=== PATIENT | male | born 1960 | race African-American/Black ===

== ENCOUNTER 2017-08-20 01:05 | Inpatient (IN) | payer OTHER ==
[2017-08-20] MEDS ORDERED: Sodium Chloride 0.9% 1,000 ML IV ONE (01:30)
[2017-08-20] MEDS ORDERED: Morphine Sulfate 4 mg/mL 1mL Syr IVP STA (01:37)
[2017-08-20] MEDS ORDERED: Morphine Sulfate 4 mg/mL 1mL Syr ONE (01:41)
--- NOTE | 2017-08-20 01:43 | ED Physician Chart ---
ED Chief Complaint/HPI - Patient Information Date Seen:: 08/20/17 Time Seen:: 01:20 Chief Complaint:: abdominal pain History of Present Illness:: Patient developed left-sided abdominal pain about 1 hour ago. Moving around seems to relieve the pain slightly. Patient vomited several times. He's had no diarrhea. Patient has no history of similar pain. Allergies:: Allergies Allergy/AdvReac Type Severity Reaction Status Date / Time No Known Allergies Allergy Verified 08/20/17 01:13 Vitals:: Vital Signs - 8 hr 08/20/17 01:05 Temp 97.6 F HR 82 RR 20 BP 159/83 O2 Sat % 100 Historian:: Patient <AkashMir D. - Last Filed: 08/20/17 06:27> - Patient Information Allergies:: Allergies Allergy/AdvReac Type Severity Reaction Status Date / Time No Known Allergies Allergy Verified 08/20/17 01:13 Vitals:: Vital Signs - 8 hr 08/20/17 08/20/17 06:28 08:15 Temp 98.2 F 97.8 F HR 98 96 RR 20 21 BP 160/97 149/85 O2 Sat % 97 100 <Bryan Prieto - Last Filed: 08/20/17 09:48> ED Review of Systems - Review of Systems General/Constitutional: No fever, No chills, No weight loss, No weakness, No diaphoresis, No edema, No loss of appetite Skin: No skin lesions, No rash, No bruising Head: No headache, No light-headedness Eyes: No loss of vision, No pain, No diplopia ENT: No earache, No nasal drainage, No sore throat, No tinnitus Neck: No neck pain, No swelling, No thyromegaly, No stiffness, No mass noted Cardio Vascular: No chest pain, No palpitations, No PND, No orthopnea, No edema Pulmonary: No SOB, No cough, No sputum, No wheezing GI: Nausea, Vomiting, No diarrhea, No pain, No melena, No hematochezia, No constipation, No hematemesis G/U: No dysuria, No frequency, No hematuria Musculoskeletal: No bone or joint pain, No back pain, No muscle pain Endocrine: No polyuria, No polydipsia Psychiatric: No prior psych history, No depression, No anxiety, No suicidal ideation Hematopoietic: No bruising, No lymphadenopathy Allergic/Immuno: No urticaria, No angioedema Neurological: No syncope, No focal symptoms, No weakness, No paresthesia, No headache, No seizure, No dizziness, No confusion, No vertigo <Mir Bustos - Last Filed: 08/20/17 06:27> ED Past Medical History - Past Medical History Past Medical History: HTN Family History: None Social History: Non Smoker, Alcohol, Other (occasional alcohol consumption) Surgical History: other (arthroscopic surgery for meniscus tear left knee) Psychiatricy History: None Medication: Reviewed <Mir Bustos - Last Filed: 08/20/17 06:27> Family Medical History - Family Member Mother History Unknown: Yes Ethnicity: Non- <Mir Bustos - Last Filed: 08/20/17 06:27> ED Physical Exam - Physical Examination General/Constitutional: Awake, Well-developed, well-nourished, Alert, GCS 15, Non-toxic appearing, Ambulatory Other Gen/Cons comments:: Mild to moderate distress Head: Atraumatic Eyes: Lids, conjuctiva normal, PERRL, EOMI Skin: Nl inspection, No rash, No skin lesions, No ecchymosis, Well hydrated, No lymphadenopathy ENMT: External ears, nose nl, Nasal exam nl, Lips, teeth, gums nl Neck: Nontender, Full ROM w/o pain, No JVD, No nuchal rigidity, No bruit, No mass, No stridor Respiratory: Nl effort/Exclusion, Clear to Auscultation, No Wheeze/Rhonchi/Rales Cardio Vascular: RRR, No murmur, gallop, rubs, NL S1 S2 GI: No organomegaly, No hernia, Normal BS's, Nondistended, No mass/bruits, No McBurney tenderness Other GI comments:: Left mid abdominal and left upper quadrant tenderness : No CVA tenderness Extremities: No tenderness or effusion, Full ROM, normal strength in all extremities, No edema, Normal digits & nails Neuro/Psych: Alert/oriented, DTR's symmetric, Normal sensory exam, Normal motor strength, Judgement/insight normal, Mood normal, Normal gait, No focal deficits Misc: Normal back, No paraspinal tenderness <Mir Bustos - Last Filed: 08/20/17 06:27> ED Labs/Radiology/EKG Results - Lab Results Results: Laboratory Results - last 24 hr 08/20/17 08/20/17 08/20/17 01:30 01:30 02:10 WBC 9.0 RBC 5.16 Hgb 17.0 Hct 48.9 MCV 94.8 MCH 32.9 H MCHC Differential 34.7 RDW 12.7 Plt Count 293 MPV 8.0 Neutrophils % 50.8 Lymphocytes % 35.6 Monocytes % 7.2 Eosinophils % 2.3 Basophils % 4.1 H Sodium 135 L Potassium 2.8 L* Chloride 99 Carbon Dioxide 22.7 Anion Gap 16.1 H BUN 16 Creatinine 1.3 Est GFR ( Amer) > 60.0 Est GFR (Non-Af Amer) > 60.0 BUN/Creatinine Ratio 12.3 Glucose 141 H Calcium 9.8 Magnesium 1.9 Lipase 28 Urine Source [place] Urine Color YELLOW Urine Clarity CLEAR Urine pH 5.5 Ur Specific [place] 1.020 Urine Protein TRACE Urine Glucose (UA) NEGATIVE Urine Ketones NEGATIVE Urine Blood NEGATIVE Urine Nitrate NEGATIVE Urine Bilirubin NEGATIVE Urine Urobilinogen 0.2 Ur Leukocyte Esterase NEGATIVE Urine RBC 0-2 H Urine WBC 0-2 Ur Epithelial Cells OCCASIONAL Urine Bacteria OCCASIONAL - EKG Interpretations Rate & Rhythm: normal sinus rhythm with a rate of 90 [place]: normal axis <Mir Bustos - Last Filed: 08/20/17 06:27> - Lab Results Results: Laboratory Tests 08/20/17 08/20/17 08/20/17 01:30 01:30 02:10 WBC 9.0 RBC 5.16 Hgb 17.0 Hct 48.9 MCV 94.8 MCH 32.9 H MCHC Differential 34.7 RDW 12.7 Plt Count 293 MPV 8.0 Neutrophils % 50.8 Lymphocytes % 35.6 Monocytes % 7.2 Eosinophils % 2.3 Basophils % 4.1 H Sodium 135 L Potassium 2.8 L* Chloride 99 Carbon Dioxide 22.7 Anion Gap 16.1 H BUN 16 Creatinine 1.3 Est GFR ( Amer) > 60.0 Est GFR (Non-Af Amer) > 60.0 BUN/Creatinine Ratio 12.3 Glucose 141 H Calcium 9.8 Magnesium 1.9 Lipase 28 Urine Source [place] Urine Color YELLOW Urine Clarity CLEAR Urine pH 5.5 Ur Specific [place] 1.020 Urine Protein TRACE Urine Glucose (UA) NEGATIVE Urine Ketones NEGATIVE Urine Blood NEGATIVE Urine Nitrate NEGATIVE Urine Bilirubin NEGATIVE Urine Urobilinogen 0.2 Ur Leukocyte Esterase NEGATIVE Urine RBC 0-2 H Urine WBC 0-2 Ur Epithelial Cells OCCASIONAL Urine Bacteria OCCASIONAL - Radiology Results Comments:: + Infitrate <Bryan Prieto - Last Filed: 08/20/17 09:48> ED Assessment - Assessment General Assessment: At 0608 patient's pain is down to 6 out of 8. Pain had been 8 out of 10. Left- sided abdominal tenderness present. Will order a noncontrast CAT scan of abdomen and pelvis. Patient to be endorsed to Dr. Prieto at 0700. <Mir Bustos - Last Filed: 08/20/17 06:27> ED Septic Shock - <6hrs of presentation: Vital Signs: Vital Signs - 8 hr 08/20/17 01:05 Temp 97.6 F HR 82 RR 20 BP 159/83 O2 Sat % 100 <Mir Bustos - Last Filed: 08/20/17 06:27> - . Is Septic Shock (SBP<90, OR Lactate>4 mmol\L) present?: No - <6hrs of presentation: Vital Signs: Vital Signs - 8 hr 08/20/17 08/20/17 06:28 08:15 Temp 98.2 F 97.8 F HR 98 96 RR 20 21 BP 160/97 149/85 O2 Sat % 97 100 <Bryan Prieto - Last Filed: 08/20/17 09:48> ED Reassessment (Disposition) - Reassessment Reassessment Condition:: Improved - Diagnosis Diagnosis:: Abdominal pain; hypokalemia <Mir Bustos - Last Filed: 08/20/17 06:27> - Diagnosis Diagnosis:: Pneumonia; Intractable Pain; Vomiting - Aftercare/Follow up Instructions Aftercare/Follow-Up Instructions:: Counseled pt regarding lab results/diagnosis & need follow up, Counseled pt & family regarding lab results/diagnosis & need follow up - Patient Disposition Discharge/Transfer:: Acute Care w/in this hosp Accepting Physician:: Dr. León Time Called:: 0700 Time Responded:: 07:00 Admitted to:: Med/Surg Spoke to:: Dr. León Admitting Medical Physician:: Dr. León Condition at Disposition:: Stable, Improved <Bryan Prieto - Last Filed: 08/20/17 09:48>
[2017-08-20 01:49] LABS: % BASOPHILS 4.1 % (0.0-2.0); % EOSINOPHILS 2.3 % (0.0-5.0); % LYMPHOCYTES 35.6 % (20.0-50.0); % MONOCYTES 7.2 % (2.0-10.0); % NEUTROPHILS 50.8 % (40.0-80.0); BASOPHILE ABSOLUTE 0.4 Th/cumm (0-0.2); EOSINOPHILE ABSOLUTE 0.2 Th/cmm (0.1-0.4); HEMATOCRIT 48.9 % (41.0-60); LYMPHOCYTE ABSOLUTE 3.2 Th/cmm (1.5-3.0); MEAN CELL VOLUME 94.8 fl (80-99); MEAN CORPUSCULAR HEMOGLOBIN 32.9 pg (26.0-30.0); MEAN CORPUSCULAR HGB CONC 34.7 pg (28.0-36.0); MONOCYTE ABSOLUTE 0.6 Th/cmm (0.3-1.0); NEUTROPHILE ABSOLUTE 4.6 Th/cmm (1.8-8.0); PLATELET COUNT 293 Th/cmm (150-400); RED BLOOD COUNT 5.16 Mil/cmm (4.30-5.70); RED CELL DISTRIBUTION WIDTH 12.7 % (11.5-20.0)
[2017-08-20 02:01] LABS: ANION GAP 16.1 (7.0-16.0); BUN - UREA NITROGEN 16 mg/dL (7-25); CALCIUM SERUM 9.8 mg/dL (8.6-10.3); CARBON DIOXIDE 22.7 mEq/L (21.0-31.0); CHLORIDE 99 mEq/L (98-107); CREATININE - SERUM 1.3 mg/dL (0.7-1.3); GFR AFRICAN-AMERICAN > 60.0 ml/min (>90); GFR NON AFRICAN-AMERICAN > 60.0 ml/min; GLUCOSE 141 mg/dL (70-105); LIPASE 28 U/L (11-82); MAGNESIUM 1.9 mg/dL (1.9-2.7); SODIUM SERUM 135 mEq/L (136-145)
[2017-08-20 02:05] LABS: POTASSIUM SERUM 2.8 mEq/L (3.5-5.1)
[2017-08-20 02:20] LABS: URINE MICROSCOPIC INDICATED? YES; URINE SOURCE MIDSTREAM
[2017-08-20 02:22] LABS: URINE BILIRUBIN NEGATIVE (NEGATIVE); URINE BLOOD NEGATIVE (NEGATIVE); URINE GLUCOSE (UA) NEGATIVE (NEGATIVE); URINE KETONE NEGATIVE (NEGATIVE); URINE LEUKOCYTE ESTERASE NEGATIVE (NEGATIVE); URINE NITRATE NEGATIVE (NEGATIVE); URINE PH 5.5 (4.6 - 8.0); URINE PROTEIN TRACE mg/dL (NEGATIVE); URINE UROBILINOGEN 0.2 E.U./dL (0.2 - 1.0)
[2017-08-20] MEDS ORDERED: Potassium Chloride 20 mEq ER Tab PO ONE ×4 (02:22→06:18)
[2017-08-20] MEDS ORDERED: HYDROmorphone 1 mg/mL 1mL Syr IVP STA ×2 (02:23→06:15)
[2017-08-20] MEDS ORDERED: HYDROmorphone 1 mg/mL 1mL Syr ONE ×2 (02:25→06:18)
[2017-08-20 02:49] LABS: URINE CLARITY CLEAR (CLEAR); URINE COLOR YELLOW
[2017-08-20 02:50] LABS: URINE BACTERIA OCCASIONAL /hpf (NONE SEEN); URINE EPITHELIAL CELLS OCCASIONAL /lpf (FEW); URINE RBC 0-2 /hpf (0-5); URINE WBC 0-2 /hpf (0-5)
--- NOTE | 2017-08-20 07:57 | Diagnostic Imaging Report ---
CT abdomen and pelvis without intravenous contrast Indication: Left-sided abdominal pain Comparison: None, Technique: Axial images were obtained from the lung bases to the bilateral proximal femurs without IV contrast. Coronal reconstructions were made. total DLP: 6 22, CTDI11.8 FINDINGS: Right basal atelectasis and probable focal infiltrate is noted. Atelectatic changes of the lungs are noted. Evaluation of solid organs is limited due to lack of IV contrast. No evidence of focal hepatic lesions. No radiopaque gallstones identified. No focal splenic lesions. High density probably ingested material is seen within the stomach. No focal pancreatic or right adrenal lesions. No evidence of hydronephrosis or focal renal lesions. The urinary bladder is mildly distended. Mild Diverticulosis is noted without evidence of diverticulitis. No appendicitis. There is haziness and inflammatory change seen within the mesentery. Few borderline prominent lymph nodes are noted No evidence of free abdominal fluid or free abdominal air. Small hiatal hernia is noted. Mild atherosclerotic vascular disease noted. Degenerative changes of the spine are noted. Advanced degenerative changes left hip joint are noted with subchondral cystic changes. IMPRESSION: Haziness and inflammatory changes of the mesentery with a few borderline prominent lymph nodes. Findings may be due to mesenteric adenitis. Clinical correlation recommended. No evidence of bowel obstruction. Mild diverticulosis without evidence of diverticulitis Distended urinary bladder. Right basal atelectasis and probable focal infiltrate. Small hiatal hernia. There is mild gastroesophageal reflux of oral contrast in this region. High density within the hiatal hernia and the stomach may be due to ingested material.
[2017-08-20] MEDS ORDERED: Levofloxacin 500mg/100mL 500 MG/100 ML BAG IV ONE ×2 (08:35→10:17)
[2017-08-20] MEDS ORDERED: 0.45% NS w/20 mEq KCl 1,000 ML IV ONE (10:53)
[2017-08-20] MEDS ORDERED: D5-0.45NS w/20 mEq KCL 1,000 ML IV ONE (11:00)
[2017-08-20] MEDS ORDERED: Morphine Sulfate 2 mg/mL 1mL Syr IVP PRN (11:00)
[2017-08-20] MEDS: D5-0.45NS w/20 mEq KCL 1,000 ML IV SCH ×2 (11:00→22:50)
[2017-08-20 11:02] LABS: AMYLASE SERUM 75 U/L (29-103); LDH = LACTIC DEHYDROGENASE 158 U/L (140-271)
[2017-08-20] MEDS ORDERED: Morphine Sulfate 2 mg/mL 1mL Syr ONE (11:04)
--- NOTE | 2017-08-20 11:25 | Diagnostic Imaging Report ---
Portable chest x-ray History: Cough Allowing for portable technique the heart size is normal. No focal pulmonary parenchymal processes. Slight elevation the right hemidiaphragm. No hilar or mediastinal abnormalities. Degenerative changes seen to the spine. Impression: No acute abnormalities.
--- NOTE | 2017-08-21 04:50 | Consultation ---
DATE OF CONSULTATION: 08/20/2017 REASON FOR CONSULTATION: Abdominal pain. HISTORY OF PRESENT ILLNESS: This consult was obtained through the request of Dr. León for this 56-year-old with history of hypertension, presenting to the hospital because of abdominal cramps started yesterday accompanied by nausea. He vomited few times, came to the Emergency Room, had a CAT scan, was admitted. GI consult was called in for further evaluation. The patient never had any episode like this before started yesterday with severe abdominal cramps in the upper part accompanied by nausea and vomiting, now started to feel a little bit better. No fever, no change in bowel habits. No bleeding. PAST MEDICAL HISTORY: Hypertension. PAST SURGICAL HISTORY: Arthroscopic surgeries. SOCIAL HISTORY: Ex-smoker, quit 15 years ago, nonalcoholic. IV drug abuser. He works as a fork truck driver. FAMILY HISTORY: Negative and noncontributory. MEDICATIONS: ____ blood pressure. ALLERGIES: No known drug allergy. REVIEW OF SYSTEMS: The patient had a colonoscopy 7 years ago, had couple of unremarkable polyps, was told to come back in 10 years. He denies any weight loss. No hematemesis, melena or hematochezia. No change of bowel habits. PHYSICAL EXAMINATION: GENERAL: The patient is awake, oriented to self, place, and time, in mild distress. VITAL SIGNS: Blood pressure is 114/85, heart rate 96, respiratory rate 21, temperature 98.2. HEAD AND NECK: Pupils reactive to light and accommodation. Extraocular muscles intact. Sclerae are anicteric. Conjunctivae not pale. Oral cavity, no lesion. NECK: Supple. CHEST: Good air entry. LUNGS: Clear to auscultation. CARDIOVASCULAR: Regular rate and rhythm. No murmur or gallop. ABDOMEN: Soft. Positive bowel sounds. Mild supraumbilical tenderness. EXTREMITIES: Lower extremities, no edema. CENTRAL NERVOUS SYSTEM: Grossly nonfocal. LABORATORY DATA: CBC unremarkable. Chemistry showed potassium of 2.8, glucose 141. CT of the abdomen and pelvis showed haziness inflammatory changes of the mesentery, some borderline lymph nodes. No bowel obstruction, mild diverticulosis, distended bladder, small hiatal hernia, mild gastroesophageal reflux disease. IMPRESSION: A 56-year-old now with abdominal pain, haziness of the mesentery nausea, vomiting. ASSESSMENT AND PLAN: Abdominal pain, haziness of the mesentery, nausea, vomiting. This picture is consistent with enteritis, viral in origin. At this time, the patient is clinically better. We will start him on clear liquid diet. We will recheck labs in the morning including CBC, CMP, lipase. We will do a KUB. If he started having diarrhea, we can do stool studies and then further recommendations to follow. If he is improving, we will continue to advance diet and discharge and followed as an outpatient. If not, consideration will be for endoscopy or colonoscopy. Thank you, Dr. León for allowing me to participate in the care of the patient. If you have any further questions, please let me know. JOB# [id number]
[2017-08-21 06:23] LABS: % EOSINOPHILS 1.7 % (0.0-5.0); % LYMPHOCYTES 15.5 % (20.0-50.0); % MONOCYTES 8.2 % (2.0-10.0); % NEUTROPHILS 74.6 % (40.0-80.0); EOSINOPHILE ABSOLUTE 0.2 Th/cmm (0.1-0.4); HEMATOCRIT 47.8 % (41.0-60); HEMOGLOBIN 16.6 gm/dL (12-16); LYMPHOCYTE ABSOLUTE 1.4 Th/cmm (1.5-3.0); MEAN CORPUSCULAR HGB CONC 34.7 pg (28.0-36.0); MONOCYTE ABSOLUTE 0.8 Th/cmm (0.3-1.0); NEUTROPHILE ABSOLUTE 6.9 Th/cmm (1.8-8.0); PLATELET COUNT 257 Th/cmm (150-400); RED BLOOD COUNT 5.03 Mil/cmm (4.30-5.70); RED CELL DISTRIBUTION WIDTH 12.4 % (11.5-20.0); WHITE BLOOD COUNT 9.3 Th/cmm (4.8-10.8)
[2017-08-21 06:34] LABS: ALB/GLOB RATIO 1.3 (1.0-1.8); ALKALINE PHOSPHATASE 47 U/L (34-104); ANION GAP 10.3 (7.0-16.0); BILIRUBIN,TOTAL 1.3 mg/dL (0.3-1.0); BUN - UREA NITROGEN 11 mg/dL (7-25); CALCIUM SERUM 8.8 mg/dL (8.6-10.3); CARBON DIOXIDE 27.8 mEq/L (21.0-31.0); CHLORIDE 100 mEq/L (98-107); CREATININE - SERUM 1.3 mg/dL (0.7-1.3); GFR AFRICAN-AMERICAN > 60.0 ml/min (>90); GFR NON AFRICAN-AMERICAN > 60.0 ml/min; GLUCOSE 123 mg/dL (70-105); LIPASE 48 U/L (11-82); POTASSIUM SERUM 3.1 mEq/L (3.5-5.1); SGOT 22 U/L (13-39); SGPT/ALT 22 U/L (7-52); SODIUM SERUM 135 mEq/L (136-145); TOTAL PROTEIN,SERUM 7.1 gm/dL (6.0-8.3)
== END 2017-08-21 08:55 | disposition left against medical advice (07) | DRG 391 ==
LOC: ER 01:05 → MSI 12:27
PROVIDERS: ADMIT Internal Medicine; ATTEND Internal Medicine
DX: A08.4 Viral intestinal infection, unspecified (principal); J18.9 Pneumonia, unspecified organism; I10 Essential (primary) hypertension; E87.6 Hypokalemia; Z53.21 Procedure and treatment not carried out due to patient leaving prior to being seen by health care provider
CPT/HCPCS: 36415-UA; 71045-TC; 80048-TC; 80053-TC; 81001-TC; 82150-TC; 82948-90; 83615-TC; 83690-TC; 83735-TC; 85025-TC; 90784; 93005; 96375; 96376; C9113; J1170; J1956; J2270; J2405; J2543; J3480; J7030